=== PATIENT | female | born 1995 | race Caucasian/White ===

== ENCOUNTER 2025-09-28 13:23 | Outpatient (CLI) | payer BC | END 2025-09-28 13:24 | disposition home or self-care (01) | LOC: CSHULT 13:23 | PROVIDERS: ATTEND Internal Medicine Hematology & Oncology | DX: C50.812 Malignant neoplasm of overlapping sites of left female breast (principal) | CPT/HCPCS: 93306 ==

== ENCOUNTER 2025-10-01 12:41 | Day surgery (SDC) | payer BC ==
[2025-09-28 10:33] VITALS: BMI 20.5
[2025-10-01] MEDS ORDERED: Ketorolac Tromethamine 30 MG (1 mL) VIAL ONE (13:00)
[2025-10-01] MEDS ORDERED: Acetaminophen 500 MG TAB ONE (13:01)
[2025-10-01 13:14] LABS: #Basophils 0.07 10x3/uL (0.0-0.2); #Eosinophils 0.11 10x3/uL (0.0-0.5); #Monocytes 0.90 10x3/uL (0.0-1.1); #Neutrophils 7.43 10x3/uL (1.5-8.4); %Basophils 0.7 % (0.0-2.0); %Eosinophils 1.0 % (0.0-6.0); %Lymphocytes 19.9 % (18.0-47.0); %Monocytes 8.4 % (0.0-10.0); %Neutrophils 69.7 % (40.0-75.0); Hematocrit 42.5 % (34.9-44.5); Hemoglobin 14.4 g/dL (12.0-15.5); Mean Corpuscular Hemoglobin 32.6 pg (27.0-33.0); Mean Corpuscular Volume 96.2 fL (81.6-98.3); Platelet Count 240 10x3/uL (150-450); Red Blood Cell (RBC) Count 4.42 10x6/uL (3.90-5.03); White Blood Cell (WBC) Count 10.66 10x3/uL (3.5-10.5)
[2025-10-01 13:38] LABS: Anion Gap 11 mmol/L (10-20); BUN (Urea Nitrogen) 13 mg/dL (7.0-18.7); Calc. Creatinine Clearance 109 mL/min (70-130); Calcium 9.1 mg/dL (7.8-10.44); Carbon Dioxide 28 mmol/L (22-29); Chloride 105 mmol/L (98-107); Glucose 89 mg/dL (70-105); Potassium 4.5 mmol/L (3.5-5.1); Sodium 139 mmol/L (136-145)
[2025-10-01] MEDS ORDERED: PROPOFOL 20 ML ONE (14:00)
[2025-10-01] MEDS ORDERED: Lidocaine 1% PF 5 ML VIAL ONE (14:02)
[2025-10-01] MEDS ORDERED: Bupivacaine/Epinephrine 0.25% 30 ML VIAL ONE (14:34)
[2025-10-01] MEDS ORDERED: CEFAZOLIN 1 GM VIAL ONE (15:32)
[2025-10-01] MEDS ORDERED: Ondansetron PF 4 MG/2 ML Vial ONE (15:48)
== END 2025-10-01 17:15 | disposition home or self-care (01) ==
LOC: CSHSDC 12:41
PROVIDERS: ATTEND Specialist
PROC: 0JH60WZ Insertion of Totally Implantable Vascular Access Device into Chest Subcutaneous Tissue and Fascia, Open Approach (ICD-10-PCS; principal; 2025-10-01)
DX: C50.912 Malignant neoplasm of unspecified site of left female breast (principal); C77.9 Secondary and unspecified malignant neoplasm of lymph node, unspecified; Z17.31 Human epidermal growth factor receptor 2 positive status; Z90.710 Acquired absence of both cervix and uterus
CPT/HCPCS: 71045; 80048; 85025; C1788; J0690; J1100; J1642; J1885; J2250; J2405; J2704; J3010